=== PATIENT | female | born 1970 | race Caucasian/White ===

== ENCOUNTER 2018-06-09 12:51 | Emergency (ER) | payer MEDICAID | END 2018-06-09 15:10 | disposition home or self-care (01) | LOC: FTE 12:51 | DX: S40.022A Contusion of left upper arm, initial encounter (principal); W01.0XXA Fall on same level from slipping, tripping and stumbling without subsequent striking against object, initial encounter; Y92.9 Unspecified place or not applicable | CPT/HCPCS: 73080; 73080-LT; 73090; 73130-LT; 99283 ==